=== PATIENT | female | born 1965 | race Caucasian/White ===

== ENCOUNTER 2018-12-12 10:22 | Outpatient (CLI) | payer OTHER | END 2018-12-12 10:40 | disposition home or self-care (01) | LOC: SONOGRAMA 10:22 | DX: N85.00 Endometrial hyperplasia, unspecified (principal) ==

== ENCOUNTER 2019-02-11 07:37 | Outpatient (CLI) | payer OTHER | END 2019-02-11 09:09 | disposition home or self-care (01) | LOC: LAB 07:37 | DX: N83.209 Unspecified ovarian cyst, unspecified side (principal); D50.8 Other iron deficiency anemias; E83.51 Hypocalcemia; N39.0 Urinary tract infection, site not specified; Z01.811 Encounter for preprocedural respiratory examination; E78.00 Pure hypercholesterolemia, unspecified; E03.8 Other specified hypothyroidism; D68.8 Other specified coagulation defects; Z01.810 Encounter for preprocedural cardiovascular examination; B96.89 Other specified bacterial agents as the cause of diseases classified elsewhere ==

== ENCOUNTER 2019-02-18 14:29 | Inpatient (IN) | payer OTHER ==
[~2019-02-18] VITALS: Ht 170.2 cm; Wt 90.3 kg
[2019-02-18] MEDS ORDERED: LOSARTAN-HCTZ1 EAC1 PO (15:30)
[2019-02-25] MEDS ORDERED: PERCOCET 5-3251 EACH PO ×2 (08:53)
== END 2019-02-25 09:35 | DRG 743 ==
LOC: O/R 02-22 05:22 → OB/GYN 02-22 05:22 → SURH 02-22 07:00 → OB/GYN 02-22 11:56 → SURH 02-22 14:08 → OB/GYN 02-25 09:35
PROVIDERS: ADMIT Specialist
PROC: 0UT20ZZ Resection of Bilateral Ovaries, Open Approach (ICD-10-PCS; 2019-02-22)
PROC: 0UT90ZZ Resection of Uterus, Open Approach (ICD-10-PCS; principal; 2019-02-22 07:00)
DX: D25.1 Intramural leiomyoma of uterus (principal); D25.0 Submucous leiomyoma of uterus; D25.2 Subserosal leiomyoma of uterus; N84.0 Polyp of corpus uteri; N83.292 Other ovarian cyst, left side; N83.291 Other ovarian cyst, right side; I10 Essential (primary) hypertension

== ENCOUNTER 2024-05-09 11:09 | Outpatient (CLI) | payer OTHER ==
[~2024-05-09 11:09] MED LIST: LOSARTAN-HCTZ1 EAC1 PO; PERCOCET 5-3251 EACH PO
[2024-05-09] MEDS ORDERED: TELMISARTAN-AM1 EAC1 PO (12:04)
[2024-05-09] MEDS ORDERED: ANASTROZOLE1 MG PO (12:05)
[2024-05-09 12:30] LABS: ob POSITIVE (NEGATIVE)
== END 2024-05-09 11:18 | disposition home or self-care (01) ==
LOC: LAB 11:09
DX: I11.9 Hypertensive heart disease without heart failure (principal); E78.5 Hyperlipidemia, unspecified; R73.01 Impaired fasting glucose; Z12.11 Encounter for screening for malignant neoplasm of colon; R53.83 Other fatigue; E55.9 Vitamin D deficiency, unspecified

== ENCOUNTER 2024-05-10 06:09 | Inpatient (IN) | payer OTHER ==
[~2024-05-10] VITALS: Ht 170.2 cm; Wt 88.5 kg
[~2024-05-10 06:09] MED LIST changes: +ANASTROZOLE1 MG PO; +TELMISARTAN-AM1 EAC1 PO
[2024-05-10] MEDS ORDERED: CEFAZOLIN SODIUM 1,000 MG VIAL ONE ×3 (16:56→22:31)
[2024-05-10] MEDS ORDERED: MORPHINE SULFATE 4 MG/ML VIAL IV PRN (20:15)
[2024-05-10] MEDS ORDERED: ONDANSETRON HCL 2 MG/ML VIAL IV PRN (20:15)
[2024-05-10] MEDS ORDERED: 0.9 % SODIUM CHLORIDE 1,000 ML IV SCH (20:15)
[2024-05-10] MEDS ORDERED: OxyCODONE HCL/APAP UD (PERCOCET) PO PRN (20:15)
[2024-05-10] MEDS ORDERED: CEFAZOLIN SODIUM 1,000 MG VIAL IV SCH (21:00)
[2024-05-10] MEDS ORDERED: FAMOTIDINE/PF 20 MG/10 ML SYRINGE IV PUSH SCH (21:00)
[2024-05-10] MEDS ORDERED: FAMOTIDINE/PF 20 MG/2 ML VIAL ONE (22:31)
[2024-05-11] MEDS ORDERED: PANTOPRAZOLE SODIUM 40 MG/VIAL VIAL IV SCH (09:00)
== END 2024-05-11 15:04 | disposition home or self-care (01) | DRG 581 ==
LOC: CIR.AMB 06:09 → SURG 21:54
PROVIDERS: ADMIT Surgery; ATTEND Surgery
PROC: 0HBV0ZZ Excision of Bilateral Breast, Open Approach (ICD-10-PCS; 2024-05-10)
PROC: 07B50ZZ Excision of Right Axillary Lymphatic, Open Approach (ICD-10-PCS; principal; 2024-05-10 11:30)
DX: C50.411 Malignant neoplasm of upper-outer quadrant of right female breast (principal); D24.2 Benign neoplasm of left breast; Z20.822 Contact with and (suspected) exposure to COVID-19

== ENCOUNTER 2024-09-28 06:13 | Emergency (ER) | payer OTHER ==
[~2024-09-28] VITALS: Ht 170.2 cm; Wt 82.1 kg
[2024-09-28 09:53] LABS: PH,URINE 5.5 (5.0-8.0); URINE APPEARANCE Cloudy; URINE BILIRRUBIN Negative (NEGATIVE); URINE BLOOD Moderate; URINE COLOR Dark Yellow; URINE GLUCOSE Negative (NEGATIVE); URINE KETONE Trace (NEGATIVE); URINE LEUKOCYTE Negative; URINE NITRATE Negative; URINE UROBILINOGEN 0.2 E.U./dl
[2024-09-28 09:56] LABS: URINE BACTERIA 4045.8 uL (0.0-1933); URINE EPITHELIAL CELLS 79.3 uL (0.0-38.8); URINE RBC 192.3 uL (0.0-20.8); URINE WBC 177.1 uL (0.0-23.2)
[2024-09-28 10:03] LABS: ALBUMIN 3.4 gm/dL (3.4-5.0); BILIRUBIN TOTAL 0.67 mg/dL (0.3-1.2); CALCIUM 9.2 mg/dL (8.5-10.1); CREATININE SERUM 0.91 mg/dL (0.55-1.02); GFR 62.85; GLOBULINA 4.2 G/DL (2.4-3.5); POTASSIUM 3.05 mEq/L (3.5-5.1); TOTAL PROTEIN 7.6 gm/dL (6.4-8.2)
[2024-09-28 10:06] LABS: HEMATOCRIT 34.6 % (36.0-45.00); HEMOGLOBIN 11.7 g/dL (12.0-15.00); MEAN CELL VOLUME 82.8 fL (80.00-100.00); MEAN CORPUSCULAR HGB CONC 33.9 g/dl (32.0-36.0); PLATELET COUNT 226 K/uL (150-450); RED BLOOD COUNT 4.18 M/uL (4.00-6.00)
[2024-09-28 10:34] LABS: URINE CAST 0.91 uL (0.0-1.40); URINE PROTEIN 100 (NEGATIVE)
[2024-09-28] MEDS ORDERED: CIPROFLOXACIN IN 5 % DEXTROSE 400 MG/200 ML PIGGYBAG IV ONE (14:15)
== END 2024-09-28 17:17 ==
LOC: ER 06:15
PROVIDERS: General Practice
DX: N39.0 Urinary tract infection, site not specified (principal); I10 Essential (primary) hypertension